=== PATIENT | female | born 1960 | race Caucasian/White ===

== ENCOUNTER 2016-09-04 18:40 | Emergency (ER) | payer MEDICARE ==
[2016-09-04 19:11] LABS: BASOPHILS 0.1 % (0-2); EOSINOPHILS 2.3 % (0-7); HEMATOCRIT 37.4 % (36.0-48.0); IMMATURE GRANULOCYTES 0.1 % (0-5); LYMPHOCYTES 15.9 % (15-50); MCH 29.9 pg (26.0-34.0); MCHC 32.1 g/dL (31.0-37.0); MEAN PLATELET VOLUME 9.8 fL (7.4-10.4); MONOCYTES 7.2 % (2-11); NEUTROPHILS 74.4 % (40-80); PLATELET COUNT 178 10x3/uL (130-400); RBC 4.02 10x6/uL (4.00-5.40); RDW 14.6 % (11.5-14.5); WBC 6.9 10x3/uL (4.8-10.8)
[2016-09-04 19:28] LABS: ALBUMIN 3.1 g/dL (3.4-5.0); ANION GAP 13.2 mmol/L (8-16); BILIRUBIN - TOTAL 0.3 mg/dL (0.2-1.3); CALCIUM 8.7 mg/dL (8.5-10.1); CARBON DIOXIDE 26.1 mmol/L (21.0-32.0); CREATININE - SERUM 0.9 mg/dL (0.6-1.3); POTASSIUM - SERUM 3.3 mmol/L (3.5-5.1)
[2016-09-04 20:08] LABS: APPEARANCE HAZY (CLEAR); BACTERIA FEW /hpf (NONE SEEN); BILIRUBIN NEGATIVE (NEGATIVE); COLOR YELLOW (YELLOW); GLUCOSE NEGATIVE (NEGATIVE); KETONE NEGATIVE (NEGATIVE); LEUKOCYTE ESTERASE TRACE (NEGATIVE); NITRITE NEGATIVE (NEGATIVE); PROTEIN NEGATIVE (NEGATIVE); RED CELLS - URINE OCC /hpf (0-5); UROBILINOGEN NORMAL (NORMAL)
[2016-09-04 20:09] LABS: MUCUS <1+ /lpf (NONE SEEN); UDS - AMPHET NEGATIVE QUAL (NEGATIVE); UDS - BARB NEGATIVE QUAL (NEGATIVE); UDS - BENZO NEGATIVE QUAL (NEGATIVE); UDS - COCAINE NEGATIVE QUAL (NEGATIVE); UDS - METH NEGATIVE QUAL (NEGATIVE); UDS - OPIATE NEGATIVE QUAL (NEGATIVE); UDS - PCP NEGATIVE QUAL (NEGATIVE); UDS - THC POSITIVE QUAL (NEGATIVE)
== END 2016-09-05 10:06 ==
LOC: D.ER 18:40
PROVIDERS: Emergency Medicine
DX: F29 Unspecified psychosis not due to a substance or known physiological condition (principal); R45.851 Suicidal ideations; F31.89 Other bipolar disorder; E03.9 Hypothyroidism, unspecified

== ENCOUNTER 2018-11-11 17:03 | Emergency (ER) | payer MEDICARE ==
[2018-11-11 17:10] VITALS: Wt 136.4 kg
[2018-11-11] MEDS ORDERED: TRAZODONE HCL150 MG PO (19:31)
[2018-11-11] MEDS ORDERED: HYDROCODON-ACE1 EAC7 PO (19:31)
[2018-11-11] MEDS ORDERED: VIBRAMYCIN 100100 MG PO (19:31)
[2018-11-11 19:41] VITALS: BP 118/88
== END 2018-11-11 19:41 | disposition home or self-care (01) ==
LOC: D.ER 17:03
DX: N61.1 Abscess of the breast and nipple (principal)

== ENCOUNTER 2019-06-19 15:03 | Emergency (ER) | payer MEDICARE ==
[~2019-06-19] VITALS: Ht 170.2 cm; Wt 109.1 kg
[~2019-06-19 15:03] MED LIST: HYDROCODON-ACE1 EAC7 PO; TRAZODONE HCL150 MG PO; VIBRAMYCIN 100100 MG PO
[2019-06-19 15:24] VITALS: BP 141/80; Ht 170.2 cm; Wt 109.1 kg
[2019-06-19 16:29] LABS: BASOPHILS 0.2 % (0-2); HEMATOCRIT 48.1 % (36.0-48.0); HEMOGLOBIN 15.7 g/dL (12-16); IMMATURE GRANULOCYTES 0.2 % (0-5); LYMPHOCYTES 19.5 % (15-50); MCH 31.8 pg (26.0-34.0); MCHC 32.6 g/dL (31.0-37.0); MCV 97.6 fL (80.0-100.0); MEAN PLATELET VOLUME 10.3 fL (7.4-10.4); MONOCYTES 4.2 % (2-11); NEUTROPHILS 73.9 % (40-80); PLATELET COUNT 202 10x3/uL (130-400); RBC 4.93 10x6/uL (4.00-5.40); RDW 14.1 % (11.5-14.5)
[2019-06-19 16:30] LABS: APTT 31.4 SECONDS (22.8-39.4); INR 1.09 (0.85-1.17)
[2019-06-19 16:41] LABS: CALC OSMOLALITY 277 mosm/kg (275-300); CALCIUM 8.9 mg/dL (8.5-10.1); CARBON DIOXIDE 24.7 mmol/L (21.0-32.0); CHLORIDE - SERUM 105 mmol/L (98-107); GLUCOSE 131 mg/dL (74-106); POTASSIUM - SERUM 3.4 mmol/L (3.5-5.1); SODIUM 139 mmol/L (136-145); UREA NITROGEN 8 mg/dL (7-18); eGFR NON AFRICAN AMERICAN 60 mL/min (90-120)
[2019-06-19 17:15] LABS: ALBUMIN 3.5 g/dL (3.4-5.0); ALKALINE PHOSPHATASE 74 U/L (30-120); ALT (SGPT) 50 U/L (10-68); BILIRUBIN - TOTAL 0.47 mg/dL (0.2-1.3); CKMB 0.4 U/L (0.0-3.6); CREATINE KINASE 140 UL (21-215); PRO BNP 12 pg/mL (0-125); PROTEIN - SERUM 7.7 g/dL (6.4-8.2)
[2019-06-19 17:24] LABS: TROPONIN-I < 0.017 ng/mL (0.000-0.060)
[2019-06-19] MEDS ORDERED: STERAPRED DS 1010 MG PO (19:45)
[2019-06-19] MEDS ORDERED: ALBUTEROL SULF8.5 GM INH (19:50)
== END 2019-06-19 20:39 | disposition home or self-care (01) ==
LOC: D.ER 15:03
PROVIDERS: Family Medicine
DX: R05 Cough (principal); Z03.818 Encounter for observation for suspected exposure to other biological agents ruled out; J44.9 Chronic obstructive pulmonary disease, unspecified; Z72.0 Tobacco use; I10 Essential (primary) hypertension

== ENCOUNTER 2020-06-30 16:33 | Emergency (ER) | payer MEDICARE ==
[~2020-06-30] VITALS: Ht 170.2 cm; Wt 122.7 kg
[~2020-06-30 16:33] MED LIST changes: +ALBUTEROL SULF8.5 GM INH; +STERAPRED DS 1010 MG PO
[2020-06-30 17:37] VITALS: Ht 170.2 cm; Wt 122.7 kg
[2020-06-30] MEDS ORDERED: SYNTHROID75 MCG PO (17:41)
[2020-06-30] MEDS ORDERED: MERIBIN5 MG PO (17:41)
[2020-06-30] MEDS ORDERED: ZYRTEC10 MG PO (17:42)
[2020-06-30 19:04] LABS: BILIRUBIN NEGATIVE (NEGATIVE); KETONE NEGATIVE (NEGATIVE); NITRITE NEGATIVE (NEGATIVE); UROBILINOGEN NORMAL mg/dL (< 2)
[2020-06-30] MEDS ORDERED: VOLTAREN75 MG PO (21:10)
[2020-06-30] MEDS ORDERED: SKELAXIN800 MG PO (21:11)
[2020-06-30 21:15] VITALS: BP 169/87
== END 2020-06-30 21:20 | disposition home or self-care (01) ==
LOC: D.ER 16:33
PROVIDERS: Emergency Medicine
DX: R51.9 Headache, unspecified (principal); Z76.5 Malingerer [conscious simulation]; I10 Essential (primary) hypertension; J44.9 Chronic obstructive pulmonary disease, unspecified; Z72.0 Tobacco use